=== PATIENT | female | born 1930 | race Caucasian/White ===

== ENCOUNTER 2018-09-14 12:34 | Emergency (ER) | payer MEDICARE, OTHER ==
[~2018-09-14] VITALS: Ht 165.1 cm; Wt 53.6 kg
[~2018-09-14 12:34] MED LIST: ATIVAN 0.50.5 MG/TAB PO; COUMADIN 2MG2 MG/TAB PO; EVISTA60 MG PO; LASIX 20MG TABL20 MG PO; LEXAPRO 10MG10 MG PO; LEXAPRO20 MG PO; LIPITOR20 MG PO; LOPRESSOR 225 MG/TAB PO; REMERON 15M15 MG/TA1 PO; SIMVASTATIN20 MG PO; TIAZAC180 MG PO; ULTRAM 50MG TAB50 MG PO; XYZAL5 MG PO
[2018-09-14 14:59] VITALS: BP 130/79; PULSE 90; TEMP 97.6
== END 2018-09-14 15:05 | disposition home or self-care (01) ==
LOC: COL.ER 12:34
DX: T18.120A Food in esophagus causing compression of trachea, initial encounter (principal); I10 Essential (primary) hypertension; E78.5 Hyperlipidemia, unspecified; F32.9 Major depressive disorder, single episode, unspecified; F41.9 Anxiety disorder, unspecified
CPT/HCPCS: C1726; J2060; J2405; J7030

== ENCOUNTER 2019-10-26 15:40 | Inpatient (IN) | payer MEDICARE, OTHER ==
[2019-10-26] VITALS (70 sets, daily range): BP systolic 80–135; BP diastolic 53–95; PULSE 101–120; O2SAT 82–100
[~2019-10-26] VITALS: Ht 157.5 cm; Wt 56.2 kg
[2019-10-26 16:53] LABS: HEMATOCRIT 45.8 % (37.0-47.0); MEAN CELL VOLUME 108 fl (80.0-100.0); MEAN CORPUSCULAR HEMOGLOBIN 33 pg (27.0-31.0); MEAN CORPUSCULAR HGB CONC 31 g/dl (33.0-37.0); MEAN PLATELET VOLUME 12.4 fl (7.4-10.4); PLATELET COUNT 199 K/mm3 (130-400); RED BLOOD COUNT 4.24 M/mm3 (4.10-5.30); REDCELL DISTRIBUTION WIDTH-CV 15.5 % (11.5-14.5)
[2019-10-26 16:54] LABS: ALBUMIN 4.4 gm/dL (3.5-5.0); BILIRUBIN,TOTAL 0.9 mg/dL (0.0-1.0); C-REACTIVE PROTEIN 8.2 mg/dL (0.0-0.9); CALCIUM 9.4 mg/dL (8.4-10.2); CREATININE, serum 2.35 (0.52-1.25); POTASSIUM 3.8 mmol/L (3.4-5.0); TOTAL PROTEIN 7.7 gm/dL (6.4-8.2)
[2019-10-26 17:06] LABS: TROPONIN-I 0.145 ng/mL (0.000-0.035)
[2019-10-26 17:47] LABS: COLLECTION METHOD CATHETER
[2019-10-26 17:50] LABS: ARTERIAL BLD GAS O2 SATURATION 95.7 % (92-100); ARTERIAL BLD GAS TCO2 CT 13.3; ARTERIAL BLOOD GAS BASE EXCESS -11.8 (-2-2); ARTERIAL BLOOD GAS HCO3 12.5 meq/L (22-26); ARTERIAL BLOOD GAS PCO2 24.8 mmHg (35-45); ARTERIAL BLOOD GAS PO2 78.1 mmHg (80-100); ARTERIAL BLOOD GAS pH 7.32 (7.35-7.45)
[2019-10-26 18:07] LABS: MUCOUS Present /lpf; PH 5 (5-8); SQUAMOUS EPITHELIAL 0-2 /hpf; URINE APPEARANCE Cloudy; URINE BACTERIA Rare /hpf; URINE BILIRUBIN Negative (NEGATIVE); URINE BLOOD 2+ (NEGATIVE); URINE COLOR Yellow; URINE GLUCOSE Negative (NEGATIVE); URINE KETONE Negative (NEGATIVE); URINE LEUKOCYTE ESTERASE 2+ (NEGATIVE); URINE NITRATE Negative (NEGATIVE); URINE PROTEIN(semi-quant) 1+ (NEGATIVE); URINE RBC 0-2 /hpf; URINE UROBILINOGEN Negative (NEGATIVE)
[2019-10-26] MEDS ORDERED: SYNTHROID0.05 MG/TA PO (18:14)
[2019-10-26] MEDS ORDERED: ALEVE 220MG220 MG PO (18:15)
[2019-10-26] MEDS ORDERED: PRILOSEC 20MG20 MG PO (18:15)
[2019-10-26 19:20] LABS: BAND 23 % (0-10); LYMPHOCYTE 15 % (20.0-51.0); METAMYELOCYTE 1 % (0-0); MYELOCYTE 1 % (0-0); NEUTROPHILS 59 % (42.0-75.2); PLATELET ESTIMATE NORMAL (NORMAL)
[2019-10-26 19:21] LABS: OVALOCYTES 1+
--- NOTE | 2019-10-26 20:50 | NUR ---
RECEIVE PT FROM OR. RECEIVE BEDSIDE REPORT FROM SANTO TORRES FROM OR. LEILANI CHING CRNA AT BEDSIDE TO PLACE ANOTHER CENTRAL LINE BECAUSE THE LEFT IJ IN WRONG POSITION. ART LINE PLACED BY LEILANI CHING CRNA TO RT RADIAL. PT VERY DROWSY AND UNRESPONSIVE AT THIS TIME. PLACED ON BEDSIDE CONTINUOUS MONITOR. CVP AND ART LINES PLACED. CVP NOTED TO BE 11. MIGUEL ÁNGEL KAT AT BEDSIDE DURING ADMIT PROCESS. NEW ORDERS, SEE MAR. SEE GTT TITRATIONS FLOWSHEET. WILL APPLY BSWR WHEN PT SHOWS S/S OF MORE ALERTNESS. FC PATENT AND DRIANING TO GRAVITY. 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 FINGERS AND TOES NORMAL COLOR BUT ARE VERY COOL TO TOUCH.
[2019-10-26 21:19] LABS: BASO % 0.1 % (0.0-2.0); EOS # 0.1 (0.0-0.7); EOS % 0.3 % (0-4.0); GRAN # 24.1 (1.4-6.5); GRAN % 86.1 % (42.2-75.2); LYMPH # 0.7 (1.2-3.4); LYMPH % 2.4 % (20.0-51.0); MEAN CELL VOLUME 108 fl (80.0-100.0); MEAN CORPUSCULAR HGB CONC 31 g/dl (33.0-37.0); MEAN PLATELET VOLUME 12.7 fl (7.4-10.4); MONO # 0.7 (0.1-0.6); MONO % 2.4 % (1.7-9.3); PLATELET COUNT 154 K/mm3 (130-400); REDCELL DISTRIBUTION WIDTH-CV 15.7 % (11.5-14.5)
--- NOTE | 2019-10-26 21:30 | NUR ---
DR MIMS AT BEDSIDE FOR ASSESSMENT, NEW ORDERS RECEIVED. DR SHAW AT BEDSIDE FOR ASSESSMENT. STATES TO CONTINUE TO MONITOR IF PT GOES BACK INTO AFIB. DR SHAW AWARE OF TROPONIN LEVELS AT THIS TIME.
[2019-10-26 21:35] LABS: HEMATOCRIT 36.7 % (37.0-47.0); HEMOGLOBIN 11.5 g/dl (12.5-16.0); MEAN CORPUSCULAR HEMOGLOBIN 34 pg (27.0-31.0)
[2019-10-26 21:37] LABS: INR 1.4 (0.8-3.0); PROTHROMBIN TIME 16.6 SECONDS (9.7-12.8)
[2019-10-26 21:39] LABS: BILIRUBIN,TOTAL 0.8 mg/dL (0.0-1.0); CALCIUM 7.4 mg/dL (8.4-10.2); MAGNESIUM 1.3 mg/dL (1.6-2.3); PHOSPHOROUS 2.9 mg/dL (2.5-4.5); POTASSIUM 3.3 mmol/L (3.4-5.0); TOTAL PROTEIN 5.7 gm/dL (6.4-8.2)
[2019-10-26 21:52] LABS: TROPONIN-I 3 HR POST INITIAL 0.1 ng/mL (0.000-0.034)
[2019-10-26 22:08] LABS: THYROID STIMULATING HORMONE 7.13 uIU/mL (0.465-4.680)
[2019-10-26 22:39] LABS: ARTERIAL BLD GAS O2 SATURATION 99.5 % (92-100); ARTERIAL BLD GAS TCO2 CT 13.1; ARTERIAL BLOOD GAS BASE EXCESS -9.3 (-2-2); ARTERIAL BLOOD GAS HCO3 12.5 meq/L (22-26); ARTERIAL BLOOD GAS pH 7.44 (7.35-7.45)
[2019-10-26 22:40] LABS: ARTERIAL BLOOD GAS PCO2 18.7 mmHg (35-45); ARTERIAL BLOOD GAS PO2 305.3 mmHg (80-100)
--- NOTE | 2019-10-26 22:40 | NUR ---
FIO2 DECREASED TO 50% BY RT BASED OFF NEW ABG RESULTS.
[2019-10-27] VITALS (787 sets, daily range): BP systolic 74–147; BP diastolic 50–91; PULSE 88–120; TEMP 97.8–99.9; O2SAT 80–100
--- NOTE | 2019-10-27 02:13 | NUR ---
DR LAST WITH ARE NOTIFIED OF INCREASED TROPONIN. REQUEST FOR EKG, RT NOTIFIED.
[2019-10-27 02:37] LABS: ARTERIAL BLD GAS TCO2 CT 12.1; ARTERIAL BLOOD GAS BASE EXCESS -9.7 (-2-2); ARTERIAL BLOOD GAS HCO3 11.6 meq/L (22-26); ARTERIAL BLOOD GAS pH 7.46 (7.35-7.45)
[2019-10-27 02:38] LABS: ARTERIAL BLOOD GAS PCO2 16.7 mmHg (35-45); ARTERIAL BLOOD GAS PO2 141.6 mmHg (80-100)
--- NOTE | 2019-10-27 02:40 | NUR ---
NOTIFIED DR LAST WITH [facility] OF ABG RESULTS, REQUESTS FOR MORNING CHEST XRAY TO BE OBTAINED NOW AND CALL WHEN COMPLETE. XRAY NOTIFIED, AWAITING FOR ARRIVAL.
--- NOTE | 2019-10-27 03:30 | NUR ---
MIGUEL ÁNGEL KAT AT BEDSIDE TO ATTEMPT OGT PLACEMENT, UNSUCCESSFUL. CXR OBTAINED PER [facility] REQUEST. MIGUEL ÁNGEL KAT DISCUSSES CASE WITH DR LAST WITH [facility]. NEW ORDERS RECEIVED.
--- NOTE | 2019-10-27 04:05 | NUR ---
MIGUEL ÁNGEL KAT AWARE OF LOW UO. CONTINUE TO MONITOR. PT RECEIVING IV FLUIDS, SEE MAR.
[2019-10-27 04:35] LABS: HEMATOCRIT 37.2 % (37.0-47.0); MEAN CELL VOLUME 104 fl (80.0-100.0); MEAN CORPUSCULAR HEMOGLOBIN 34 pg (27.0-31.0); MEAN CORPUSCULAR HGB CONC 32 g/dl (33.0-37.0); MEAN PLATELET VOLUME 12.9 fl (7.4-10.4); PLATELET COUNT 181 K/mm3 (130-400); RED BLOOD COUNT 3.57 M/mm3 (4.10-5.30); REDCELL DISTRIBUTION WIDTH-CV 15.9 % (11.5-14.5)
[2019-10-27 04:45] LABS: ALBUMIN 2.8 gm/dL (3.5-5.0); BILIRUBIN,TOTAL 0.9 mg/dL (0.0-1.0); CALCIUM 7.3 mg/dL (8.4-10.2); CREATININE, serum 1.68 (0.52-1.25); MAGNESIUM 3.2 mg/dL (1.6-2.3); PHOSPHOROUS 2.4 mg/dL (2.5-4.5); POTASSIUM 3.9 mmol/L (3.4-5.0); TOTAL PROTEIN 5.4 gm/dL (6.4-8.2)
[2019-10-27 04:56] LABS: INR 1.6 (0.8-3.0); PROTHROMBIN TIME 18.6 SECONDS (9.7-12.8)
[2019-10-27 04:57] LABS: TROPONIN-I 0.313 ng/mL (0.000-0.035)
--- NOTE | 2019-10-27 05:14 | NUR ---
THAIS, DR LAST, NOTIFIED OF INCREASED TROPONIN AND WBC THIS AM.
[2019-10-27 06:10] LABS: BAND 46 % (0-10); LYMPHOCYTE 4 % (20.0-51.0); METAMYELOCYTE 13 % (0-0); NEUTROPHILS 36 % (42.0-75.2); PLATELET ESTIMATE NORMAL (NORMAL)
[2019-10-27 06:16] LABS: ARTERIAL BLD GAS O2 SATURATION 98.5 % (92-100); ARTERIAL BLD GAS TCO2 CT 13.4; ARTERIAL BLOOD GAS BASE EXCESS -8.1 (-2-2); ARTERIAL BLOOD GAS HCO3 12.9 meq/L (22-26); ARTERIAL BLOOD GAS PO2 109.2 mmHg (80-100); ARTERIAL BLOOD GAS pH 7.48 (7.35-7.45)
[2019-10-27 06:19] LABS: ARTERIAL BLOOD GAS PCO2 17.6 mmHg (35-45)
[2019-10-27 08:20] LABS: PATHOLOGY DIFF REVIEW OK
--- NOTE | 2019-10-27 09:00 | NUR ---
0815: NOTIFIED ON FLOOR OF PT'S HR IN THE 140'S. EKG DONE. PT HR DOWN TO 120'S. 0900: PT BACK IN THE 140'S. DR MIMS MADE AWARE AND STATES HE SPOKE WITH REGARDING. I CALLED AND SPOKE WITH HIS NURSE AND SHE STATES WILL BE BY TO SEE PT.
--- NOTE | 2019-10-27 09:59 | NUR ---
0956: CALL PLACED TO RADIOLOGY REGARDING OG PLACEMENT. WAS TOLD TO CALL 1810 TO SPEAK WITH THE RADIOLOGIST. THERE WAS NO ANSWER AND UNABLE TO LEAVE A MESSAGE WITH RADIOLOGIST. WILL CALL AGAIN LATER.
--- NOTE | 2019-10-27 10:59 | NUR ---
1050:RADIOLOGIST PLACED NG/OG IN ROOM WITH FLOROSCOPY. 1100:SPOKE WITH REGARDING PT'S HR CONTINUING TO GO UP TO EHT 150'S APPEARING AFIB. WILL START AMIO GTT.
--- NOTE | 2019-10-27 13:02 | NUR ---
GEMMA JACKSON NOTIFIED OF [facility] RESULTS.
--- NOTE | 2019-10-27 13:56 | NUR ---
The patient is intubated and sedated. HOME THEATER INSTALLER student contacted the patient's /DPOA-HC Misael to complete initial assessment. The patient lives in [place] with Misael. The patient has a walker and receives assistance with showers from her daughter, Danette. Before this hospitalization the patient could dress herself. The patient's PCP is Dr. Campa and the patient receives medications from Viviana Pineda. The patient has advanced directives in the EMR. donor services coordinator will continue to follow to ensure a safe discharge.
[2019-10-27 14:04] LABS: ARTERIAL BLD GAS O2 SATURATION 98.4 % (92-100); ARTERIAL BLD GAS TCO2 CT 14.8; ARTERIAL BLOOD GAS BASE EXCESS -8.3 (-2-2); ARTERIAL BLOOD GAS HCO3 14.1 meq/L (22-26); ARTERIAL BLOOD GAS PCO2 22.2 mmHg (35-45); ARTERIAL BLOOD GAS PO2 124.5 mmHg (80-100); ARTERIAL BLOOD GAS pH 7.42 (7.35-7.45)
--- NOTE | 2019-10-27 16:24 | NUR ---
PT'S ARTLINE HAD BEEN LEAKING ALL DAY AND HAD BEEN GETTING RE-ENFORCED Q2HR. NOTED THAT DRAINAGE HAD INCREASED. TOOK DOWN DRESSING TO REPLACE AND NOTED A LARGE CLOT AND THAT THE ARTLINE WAS BARELY IN. ARTLINE DC'D. PRESSURE HELD AND PRESSURE DRESSING APPLIED. NOTIFIED. STATES NO NEED FOR NEW ARTLINE AT THIS TIME D/T PT'S BP IMPROVED AND WEANING DOWN ON LEVOPHED. IF CHANGES IN PRESSURE OR NEED FOR ADDITIONAL PRESSURE MAY NEED TO REPLACE.
--- NOTE | 2019-10-27 17:00 | NUR ---
PT RESPONDS TO PAIN. PT BITING ON ORAL SUCTION. PT MOVING EXTREMETIES. PT DOES NOT FOLLOW COMMANDS OR OPEN EYES TO VOICE. PT BEGAN BITING ET TUBE. PROPOFOL TURNED UP. WILL CONTINUE TO MONITOR.
--- NOTE | 2019-10-27 19:05 | NUR ---
RECEIVED REPORT FROM SANTO SALDANA. PT RESTING EASILY ON CURRENT VENT SETTINGS: AC, TV 420, PEEP 5, RATE 20, FIO2 40%. NGT IN PLACE TO LIS. FC PATENT AND DRAINING TO GRAVITY. SEE GTT TITRATIONS FLOWSHEET. VSS.
[2019-10-28] VITALS (701 sets, daily range): BP systolic 99–124; BP diastolic 67–87; PULSE 74–87; TEMP 97–98.8; O2SAT 79–100
--- NOTE | 2019-10-28 05:45 | NUR ---
WHEN PT AROUSED ON SEDATION VACATION, OPENED EYES TO VERBAL STIMULI. HOWEVER, PT WAS CONTINUOUSLY COUGHING AGAINST ETT AND SETTING OFF HIGH LIMIT ALARMS. PT NOT FOLLOWING SIMPLE INSTRUCTIONS. SEDATION ENDED, GTT RESTARTED PER PREVIOUS TITRATION.
[2019-10-28 06:25] LABS: ARTERIAL BLD GAS O2 SATURATION 98.5 % (92-100); ARTERIAL BLD GAS TCO2 CT 14.1; ARTERIAL BLOOD GAS BASE EXCESS -8.3 (-2-2); ARTERIAL BLOOD GAS HCO3 13.5 meq/L (22-26); ARTERIAL BLOOD GAS PO2 116.8 mmHg (80-100); ARTERIAL BLOOD GAS pH 7.46 (7.35-7.45)
[2019-10-28 06:33] LABS: ARTERIAL BLOOD GAS PCO2 19.5 mmHg (35-45)
[2019-10-28 07:21] LABS: HEMOGLOBIN 10.8 g/dl (12.5-16.0); MEAN CELL VOLUME 103 fl (80.0-100.0); MEAN CORPUSCULAR HEMOGLOBIN 34 pg (27.0-31.0); MEAN CORPUSCULAR HGB CONC 33 g/dl (33.0-37.0); MEAN PLATELET VOLUME 13.6 fl (7.4-10.4); PLATELET COUNT 102 K/mm3 (130-400); RED BLOOD COUNT 3.21 M/mm3 (4.10-5.30); REDCELL DISTRIBUTION WIDTH-CV 16.7 % (11.5-14.5)
[2019-10-28 07:23] LABS: ALBUMIN 2.5 gm/dL (3.5-5.0); BILIRUBIN,TOTAL 0.7 mg/dL (0.0-1.0); CALCIUM 7.3 mg/dL (8.4-10.2); CREATININE, serum 1.19 (0.52-1.25); INR 1.2 (0.8-3.0); MAGNESIUM 2.4 mg/dL (1.6-2.3); PHOSPHOROUS 3.7 mg/dL (2.5-4.5); POTASSIUM 3.3 mmol/L (3.4-5.0); PROTHROMBIN TIME 14.5 SECONDS (9.7-12.8); TOTAL PROTEIN 5.1 gm/dL (6.4-8.2)
[2019-10-28 07:46] LABS: HEMATOCRIT 33.2 % (37.0-47.0)
[2019-10-28 08:29] LABS: LYMPHOCYTE 2 % (20.0-51.0); MYELOCYTE 2 % (0-0); NEUTROPHILS 54 % (42.0-75.2); NUCLEATED RED BLOOD CELL 1 (0-6)
[2019-10-28 08:30] LABS: BURR CELLS 2+; OVALOCYTES 3+; PLATELET ESTIMATE DECREASED (NORMAL); SCHISTOCYTES 1+
--- NOTE | 2019-10-28 08:30 | NUR ---
PROPOFOL DECREASED PER DR.SINGH VARGAS.
[2019-10-28 08:31] LABS: BAND 41 % (0-10)
--- NOTE | 2019-10-28 10:37 | NUR ---
0800: Notified of drop in platelets and questioning SQ heparin. States ok with him but clarify with . 1035: Spoke with in rounds. Ok to continue SQ heparin at this time. Will follow labs in AM.
--- NOTE | 2019-10-28 10:40 | NUR ---
LEG ASSEMBLER student attended clinical rounds with the team. The patient remains intubated and sedated. financial services counselor will continue to follow.
--- NOTE | 2019-10-28 17:30 | NUR ---
PROPOFOL PLACED ON STAND BY. PT OPENING EYES TO VOICE AND SPONTANEOUSLY. PT NOT FOLLOWING COMMANDS. PT BITING ON ORAL SUCTION. PT CLOSING EYES WHILE TRYING TO ASSESS PUPILS. PT MOVING ALL EXTREMETIES. PT REMAINING CALM WHILE PROPOFOL ON STAND BY. WILL LEAVE ON STAND BY UNLESS PT BECOMES RESTLESS OR STARTS FIGHTING THE VENT. WILL CONTINUE TO MONITOR.
--- NOTE | 2019-10-28 18:12 | NUR ---
PT STARTING TO BITE ON ET TUBE. PT ALSO TACHYPNIC AND OVER BREATHING THE VENT. PROPOFOL RESTARTED. WILL CONTINUE TO MONITOR.
--- NOTE | 2019-10-28 19:15 | NUR ---
RECEIVED REPORT FROM SANTO SALDANA. PT RESTING EASILY ON CURRENT VENT SETTINGS: AC, TV 420, RATE 20, PEEP 5, FIO2 40%. FC PATENT AND DRAINING TO GRAVITY. NGT WITH TUBE FEED INFUSING AT 10ML/HR, APPEARS TO BE TOLERATING WELL. VSS. NO ACUTE S/S OF DISTRESS NOTED.
--- NOTE | 2019-10-28 20:55 | NUR ---
TF INCREASED TO 25ML/HR PER ORDERS, RESIDUAL 5. VSS.
[2019-10-29] VITALS (708 sets, daily range): BP systolic 91–128; BP diastolic 56–81; PULSE 72–80; TEMP 97.5–98.7; O2SAT 93–100
--- NOTE | 2019-10-29 05:25 | NUR ---
TF INCREASED TO 32ML/HR, GOAL. RESIDUAL 5ML.
[2019-10-29 05:55] LABS: ARTERIAL BLD GAS O2 SATURATION 98.7 % (92-100); ARTERIAL BLD GAS TCO2 CT 15.5; ARTERIAL BLOOD GAS BASE EXCESS -7.5 (-2-2); ARTERIAL BLOOD GAS HCO3 14.8 meq/L (22-26); ARTERIAL BLOOD GAS pH 7.45 (7.35-7.45)
[2019-10-29 05:56] LABS: ARTERIAL BLOOD GAS PO2 130.5 mmHg (80-100)
[2019-10-29 06:07] LABS: HEMOGLOBIN 10.9 g/dl (12.5-16.0); MEAN CELL VOLUME 104 fl (80.0-100.0); MEAN CORPUSCULAR HEMOGLOBIN 34 pg (27.0-31.0); MEAN CORPUSCULAR HGB CONC 32 g/dl (33.0-37.0); PLATELET COUNT 93 K/mm3 (130-400); RED BLOOD COUNT 3.25 M/mm3 (4.10-5.30); REDCELL DISTRIBUTION WIDTH-CV 16.8 % (11.5-14.5)
[2019-10-29 06:13] LABS: PROTHROMBIN TIME 12.2 SECONDS (9.7-12.8)
[2019-10-29 06:15] LABS: HEMATOCRIT 33.8 % (37.0-47.0)
[2019-10-29 06:18] LABS: ALBUMIN 2.4 gm/dL (3.5-5.0); BILIRUBIN,TOTAL 0.7 mg/dL (0.0-1.0); CALCIUM 7.5 mg/dL (8.4-10.2); CREATININE, serum 1.09 (0.52-1.25); MAGNESIUM 2.3 mg/dL (1.6-2.3); PHOSPHOROUS 2.8 mg/dL (2.5-4.5); POTASSIUM 4.2 mmol/L (3.4-5.0)
--- NOTE | 2019-10-29 06:30 | NUR ---
PT REMAINS CALM AFTER SEDATION VACATION STARTED. WEANING TRAIL STARTED AT THIS TIME BY RT. PT REMAINS CALM AND IS BREATHING WELL ON HER OWN AT THIS TIME. VSS. WILL CONTINUE TO MONITOR CLOSELY AND HELP KEEP PT CALM.
--- NOTE | 2019-10-29 07:04 | NUR ---
PT ON WEANING TRIAL MAYA WELL WITH NO DISTRESS NOTED ON 5 OVER 5.
--- NOTE | 2019-10-29 07:15 | NUR ---
BEDSIDE REPORT RECEIVED FROM SANTO ZAPATA PATIENT RESTING WHILE ON CPAP TRIAL. VS WNL. ALL LINES, TUBES, GTTS, AND VENT SETTINGS REVIEWED. CARE TAKEN OVER AT THIS TIME.
[2019-10-29 08:10] LABS: BAND 23 % (0-10); LYMPHOCYTE 2 % (20.0-51.0); NEUTROPHILS 72 % (42.0-75.2); NUCLEATED RED BLOOD CELL 2 (0-6)
[2019-10-29 08:11] LABS: OVALOCYTES 3+; PLATELET ESTIMATE DECREASED (NORMAL)
[2019-10-29 08:12] LABS: BURR CELLS 1+; SCHISTOCYTES 1+
--- NOTE | 2019-10-29 09:58 | NUR ---
Met with Misael and daughter along with pt in her room. She is undergoing a weaning trial this morning and doing well per Dr Morataya but cannot demonstrate enough muscle strength to raise her head or even squeeze a hand. Family did attemopt this with her and were unable to get any different response than physician. Recognizing that she has shown improvement, they are wanting to trial again tomorrow to see if she is ready for extubation. They do report wanting to support her in her recovery, recognizing that this will be a longer period and will require significant rehab. Pt has been at [facility] before, in , and reports that she liked it there. They did reach the decision to change code status to DNR/(DNI once extubation occurs). She is still remain on her current treatments and support and still hoping for a recovery.
--- NOTE | 2019-10-29 12:00 | NUR ---
PATIENT PLACED BACK IN ASSIST CONTROL ON VENT AT THIS TIME. PROPOFOL RESTARTED AT LOW DOSE.
--- NOTE | 2019-10-29 16:00 | NUR ---
PATIENT CONTINUES TO DO WELL ON VENT. SHE RESPONDS APPROPRIATELY NEUROLOGICALLY AND VS WNL. WILL CONTINUE TO MONITOR.
--- NOTE | 2019-10-29 19:00 | NUR ---
BEDSIDE REPORT GIVEN TO SANTO MONTANEZ. PATIENT TURNED DURING SHIFT REPORT. SKIN ASSESSED BY LISSETH. ALL VENT SETTINGS, LINES AND TUBES, GTTS REVIEWED. CARE TURNED OVER AT THIS TIME.
[2019-10-30] VITALS (801 sets, daily range): BP systolic 105–127; BP diastolic 61–87; PULSE 78–84; TEMP 97.5–98.8; O2SAT 88–100
[2019-10-30 05:15] LABS: ARTERIAL BLD GAS O2 SATURATION 98.3 % (92-100); ARTERIAL BLD GAS TCO2 CT 16.8; ARTERIAL BLOOD GAS BASE EXCESS -6.1 (-2-2); ARTERIAL BLOOD GAS HCO3 16.1 meq/L (22-26); ARTERIAL BLOOD GAS PCO2 23.1 mmHg (35-45); ARTERIAL BLOOD GAS PO2 110.7 mmHg (80-100); ARTERIAL BLOOD GAS pH 7.46 (7.35-7.45)
[2019-10-30 05:21] LABS: HEMOGLOBIN 10.3 g/dl (12.5-16.0); MEAN CELL VOLUME 104 fl (80.0-100.0); MEAN CORPUSCULAR HEMOGLOBIN 33 pg (27.0-31.0); MEAN CORPUSCULAR HGB CONC 32 g/dl (33.0-37.0); PLATELET COUNT 95 K/mm3 (130-400); REDCELL DISTRIBUTION WIDTH-CV 16.7 % (11.5-14.5)
[2019-10-30 05:22] LABS: HEMATOCRIT 32.3 % (37.0-47.0)
[2019-10-30 05:28] LABS: ALBUMIN 2.3 gm/dL (3.5-5.0); BILIRUBIN,TOTAL 0.6 mg/dL (0.0-1.0); CALCIUM 7.6 mg/dL (8.4-10.2); CREATININE, serum 1.08 (0.52-1.25); POTASSIUM 3.7 mmol/L (3.4-5.0); TOTAL PROTEIN 4.8 gm/dL (6.4-8.2)
[2019-10-30 06:15] LABS: ANISOCYTOSIS 1+; BAND 28 % (0-10); LYMPHOCYTE 7 % (20.0-51.0); METAMYELOCYTE 3 % (0-0); NEUTROPHILS 56 % (42.0-75.2); OVALOCYTES 1+; PLATELET ESTIMATE DECREASED (NORMAL)
[2019-10-30 06:17] LABS: DOHLE BODIES PRESENT
[2019-10-30 06:18] LABS: SCHISTOCYTES 1+
--- NOTE | 2019-10-30 12:00 | NUR ---
Tube Feeds paused, NG to LIS
--- NOTE | 2019-10-30 12:05 | NUR ---
MD Hood at bedside with family - plan is to extubate with no re-intubation and continue DNR/DNI
--- NOTE | 2019-10-30 12:20 | NUR ---
PT EXTUBATED PER DR. MIMS ORDER AND FAMILY REQUEST. PT PLACED ON 2L OXYMASK. PT RR IN MID 20'S BUT PT HAS BEEN IN MID 20'S ON VENT WELL. NO STRIDOR AUSCULTATED AND NO DISTRESS NOTED AT THIS TIME. ABG PENDING FOR THIS AFTERNOON.
--- NOTE | 2019-10-30 12:20 | NUR ---
Pt extuabted with Patience,RT at this time. Oxymask applied initially at 5L/min then titrated to 2L/min after 2min. Pt tolerated extubation well. 1230 family at bedside
[2019-10-30 16:47] LABS: ARTERIAL BLD GAS O2 SATURATION 95.5 % (92-100); ARTERIAL BLOOD GAS BASE EXCESS -6.3 (-2-2); ARTERIAL BLOOD GAS HCO3 16.2 meq/L (22-26); ARTERIAL BLOOD GAS PCO2 24.3 mmHg (35-45); ARTERIAL BLOOD GAS PO2 76.5 mmHg (80-100); ARTERIAL BLOOD GAS pH 7.44 (7.35-7.45)
--- NOTE | 2019-10-30 19:15 | NUR ---
Bedside report received from Tyler. NG tube placement confirmed together at 40cm. Gastric fluids are present in the LIS tubing. Transfer of care at this time.
--- NOTE | 2019-10-30 20:00 | NUR ---
Patient resting in bed. She is alert and oriented to self, but unclear if she is oriented in any other way; speech is incomprehensible. Assessment complete. HR and rhythm are regular with normal S1 and S2 heard. Lungs are clear in the upper lobes with diminished bases. Bowel sounds are active x4. Peripheral pulses are palpable in all extremities. Patient is edematous in the upper extremities, with hands being +3 pitting. Feet are also +3 pitting and legs being +1. Patient shakes her head no when asked if in pain and patient does not appear to be in any distress. vitals obtained and remain stable. Will continue to monitor. Call light within reach.
[2019-10-31] VITALS (436 sets, daily range): BP systolic 127–149; BP diastolic 66–94; PULSE 71–79; TEMP 97.5–98; O2SAT 82–100
--- NOTE | 2019-10-31 | NUR ---
Patient asleep at this time but awakens to name. No complaints of pain. Repositioned for comfort. Vitals obtained and remain stable. Assessment complete with no changes from previous exam. Patient does attempt to talk an answer questions, but no words can be distinguished in the sounds. Will continue to monitor. Call light within reach.
--- NOTE | 2019-10-31 04:00 | NUR ---
Patient was given a full bath and bed change. Vitals obtained and remain stable. Patient is articulating words better now and sometimes sentences can be made out. Assessment complete with no changes from previous exam. Patient denies any pain. Repositioned for comfort. Will continue to monitor. Call light within reach
[2019-10-31 05:26] LABS: MEAN CELL VOLUME 105 fl (80.0-100.0); MEAN CORPUSCULAR HGB CONC 31 g/dl (33.0-37.0); PLATELET COUNT 94 K/mm3 (130-400); RED BLOOD COUNT 2.96 M/mm3 (4.10-5.30); REDCELL DISTRIBUTION WIDTH-CV 16.9 % (11.5-14.5)
[2019-10-31 05:32] LABS: HEMATOCRIT 31.2 % (37.0-47.0); HEMOGLOBIN 9.8 g/dl (12.5-16.0); MEAN CORPUSCULAR HEMOGLOBIN 33 pg (27.0-31.0)
[2019-10-31 05:41] LABS: ALBUMIN 2.3 gm/dL (3.5-5.0); BILIRUBIN,TOTAL 0.7 mg/dL (0.0-1.0); CALCIUM 7.6 mg/dL (8.4-10.2); CREATININE, serum 1.04 (0.52-1.25); POTASSIUM 4.6 mmol/L (3.4-5.0); TOTAL PROTEIN 4.6 gm/dL (6.4-8.2)
[2019-10-31 06:16] LABS: ANISOCYTOSIS 2+; BAND 30 % (0-10); DOHLE BODIES PRESENT; EOSINOPHIL 2 % (0-4); LYMPHOCYTE 4 % (20.0-51.0); METAMYELOCYTE 2 % (0-0); NEUTROPHILS 61 % (42.0-75.2); OVALOCYTES 1+; PLATELET ESTIMATE DECREASED (NORMAL); SCHISTOCYTES 1+
--- NOTE | 2019-10-31 07:00 | NUR ---
Pt alert, oriented to self and family. Pt able to nod yes/no to questions but unable/unwilling to speak at this time. Arms and legs still weak and unable to lift/hold/squeeze with strength. Pt is able to nod "yes" that she knows she is in the hospital. No facial droop observed, WESLY. MD Smith notified of findings - plan to CT head tomorrow. Family at bedside and updated - no concerns at this time - family states "she is normally really weak and sometimes unable to move arms. She also sometimes becomes immobile due to her severe debilitating depression, and she has not been getting her depression meds since shes been in the hospital".
--- NOTE | 2019-10-31 07:10 | NUR ---
Bedside report given to SANTO Karimi
--- NOTE | 2019-10-31 08:00 | NUR ---
PT ALERT AND ORIENTED. PATIENT NODS/SHAKES HEAD APPROPRIATELY. PT NOTED TO HAVE RIGHT FACIAL DROOP AND DYSPHASIA. SPEECH IS GARBLED AND DIFFICULT TO UNDERSTAND. PT DOES HAVE THICK ROMANSH ACCENT. PT HAS WEAKNESS R>L NOTED. PT'S LUNGS NOTED TO HAVE RHONCHI THROUGHOUT. PT HAS MOIST COUGH BUT IS UNABLE TO EXPECTORATE.
--- NOTE | 2019-10-31 08:14 | NUR ---
PT NOTED TO HAVE RIGHT FACIAL DROOP, DYSPHASIA/DYSPHAGIA. PT ALSO NOTED TO HAVE INCREASED WEAKNESS TO RIGHT UPPER AND LOWER EXTREMITIES. DR CHAVEZ CALLED. PROVIDER STATES THAT SYMPTOMS WERE PRESENT YESTERDAY BUT PT WASN'T ABLE TO TOLERATE BEING LAID FLAT. PATIENT'S HOB AT THIS TIME AROUND 10 DEGREES. PT SHOULD BE ABLE TO LAY FLAT FOR CT HEAD.
--- NOTE | 2019-10-31 09:30 | NUR ---
PT WEANED TO ROOM AIR. PT O2 SAT 96%
--- NOTE | 2019-10-31 13:00 | NUR ---
PT TRANSFERRED TO MEDICAL FLOOR BED BY JUSTICE RN, MYSELF, AND FISHERIES MANAGEMENT BIOLOGIST. PT'S BELONGINGS TRANSFERRED WITH PT ALONG WITH TUBE FEED AND KANGAROO PUMP. PT'S BELONGINGS TRANSFERRED WITH PATIENT. FAMILY AWARE OF TRANSFER AND STATED THEY WILL MEET HER IN 311 AFTER THEY TAKE A SHORT BREAK. PT TRANSPORTED BY JUSTICE AND HIEU BY BED TO MEDICAL ROOM 311. CARE TRANSFERRED.
--- NOTE | 2019-10-31 13:06 | NUR ---
REPORT GIVEN TO JUSTICE BLANCHARD.
--- NOTE | 2019-10-31 13:41 | NUR ---
Pt brought up from ICU into room 312 at this time. Currently is Alert and oriented. Breathing is even and unlabored on RA. Pt having difficulty managaing secretions, suction at bedside. Coarse lung sounds to bases bilaterally. HR even and regular. Diffuse 2-3+ edema present. Pt able to follow commands, R side weaker than left. Pt not able to lift legs off of bed, and can lift arms off of the bed minimally. RIJ CDI, nothing currently infusing. NG tube at 40cm to L nare, tube feedings infusing at 15ml/hr. Levy DD, clear yellow urine. Fall precautions in place. No needs at this time. Call light within reach.
--- NOTE | 2019-10-31 16:57 | NUR ---
No residual from NG tube, feedings increased to 32ml/hr per order set. Oral cares provided. Attempted suctioning to patient for wet cough, phlegm in throat not much suctioned. Has no needs at this time. Call light within reach.
--- NOTE | 2019-10-31 18:57 | NUR ---
PRN suctioning performed, unable to suction much phlegm. POC discussed with family who is in agreeance. Tube feedings infusing without complications. Report given to SANTO Abel.
--- NOTE | 2019-10-31 20:00 | NUR ---
Dr. Rascon was in to see patient. Orders for the followin. MRI head with and without contrast tomorrow. 2. carotid ultrasoudn studies. Orders are already in for these tests.
--- NOTE | 2019-10-31 21:00 | NUR ---
Patient assessed at this time. Alert and oriented. Denies pain and discomfort. Triple lumen central line to right IJ. All flushed. Dressing to area is CDI. LS coarse crackles throughout. Denies SOB and dyspnea. Occasional moist cough. No sputum production. Respirations even and unlabored. HRR. Capillary refill less than 3 seconds. Non-tenting skin turgor. NG tube in place. 16 fr, at 40 cm thda. Jevity running per orders. BSAx4. Abdomen soft and non-tender. Indwelling tamayo catheter is patent, and draining clear yellow urine via dependent drainge. 3+ edema BLE. 2+ edema BUE. Patient refused nebulizer treatment from RT. Resting in bed with HOB elevated. Call light is within reach.
[2019-11-01] VITALS: BP 123/64; PULSE 79; TEMP 97.9
[2019-11-01 04:00] VITALS: BP 151/75; PULSE 83; TEMP 97.7
--- NOTE | 2019-11-01 04:00 | NUR ---
Staff have been assisting with repositioning in bed every two hours. Denies pain and discomfort. NG tube remains in place. Feeding put on hold at this time, as patient is scheduled for MRI today. Resting in bed wtih call light within reach.
[2019-11-01 06:00] LABS: BASO # 0.2 (0.0-0.2); BASO % 0.9 % (0.0-2.0); EOS # 0.4 (0.0-0.7); EOS % 1.8 % (0-4.0); GRAN # 17.7 (1.4-6.5); GRAN % 80.8 % (42.2-75.2); HEMOGLOBIN 10.5 g/dl (12.5-16.0); LYMPH # 0.8 (1.2-3.4); LYMPH % 3.8 % (20.0-51.0); MEAN CELL VOLUME 106 fl (80.0-100.0); MEAN CORPUSCULAR HEMOGLOBIN 33 pg (27.0-31.0); MEAN CORPUSCULAR HGB CONC 31 g/dl (33.0-37.0); MEAN PLATELET VOLUME 14.1 fl (7.4-10.4); MONO # 1.4 (0.1-0.6); MONO % 6.5 % (1.7-9.3); PLATELET COUNT 149 K/mm3 (130-400); RED BLOOD COUNT 3.17 M/mm3 (4.10-5.30); REDCELL DISTRIBUTION WIDTH-CV 16.8 % (11.5-14.5)
[2019-11-01 06:10] LABS: HEMATOCRIT 33.5 % (37.0-47.0)
[2019-11-01 06:15] LABS: ALBUMIN 2.7 gm/dL (3.5-5.0); BILIRUBIN,TOTAL 0.9 mg/dL (0.0-1.0); CALCIUM 8.2 mg/dL (8.4-10.2); CREATININE, serum 0.98 (0.52-1.25); MAGNESIUM 1.9 mg/dL (1.6-2.3); PHOSPHOROUS 2.5 mg/dL (2.5-4.5); POTASSIUM 4.1 mmol/L (3.4-5.0); TOTAL PROTEIN 5.2 gm/dL (6.4-8.2)
[2019-11-01 06:23] LABS: PRE ALBUMIN 12.8 mg/dL (17.6-36.0)
[2019-11-01 08:10] VITALS: BP 142/66; PULSE 80; TEMP 97.8
--- NOTE | 2019-11-01 08:30 | NUR ---
Pt left for MRI at this time.
--- NOTE | 2019-11-01 10:26 | NUR ---
HALINA met with the patient to review discharge plan. The patient was quiet and had a difficult time answering SW questions. The patient requested that SW contact her . HALINA then contacted the patient's , Misael, to review discharge plan. Misael is interested in SNF for the patient. HALINA explained the Patient Choice Form to Misael and reviewed Medicare.[employer]'s list of SNF's in the [facility]. The patient's chose 1) [facility] 2) [facility]. The patient's gave HALINA his verbal consent. HALINA contacted and faxed a referral to both facilities. SW awaiting their screens.
[2019-11-01 12:16] VITALS: BP 140/66; PULSE 77; TEMP 98
--- NOTE | 2019-11-01 14:27 | NUR ---
Celeste, at [facility], reports that they are good to follow care at this time. Manny, at [facility], reports that they are able to accept the patient. SW to inform the patient and her and will continue to follow.
[2019-11-01 16:17] VITALS: BP 105/57; PULSE 82; TEMP 98.5
--- NOTE | 2019-11-01 18:21 | NUR ---
Pt had uneventful day. Asked to drink water on several occasions, discussed with patient again that she is NPO. She has no pain. Good UOP, very edematous. Tube feedings infusing at 40ml/hr. Repositioning offered. No needs at this time.
--- NOTE | 2019-11-01 19:45 | NUR ---
Patient assessed at this time. Alert and oriented. Denies having pain and discomfort. Triple lumen right IJ. Flushed each lumen. 16fr salem sump NG tube. Feeding per orders. At 40 cm thad. LS CTA in upper lobes, diminished in lower. Denies SOB and dyspnea. Respirations even and unlabored. HRR. Capillary refill less than 3 seconds. Non-tenting skin turgor. BSAx4. Abdomen soft and non-tender. Indwelling tamayo catheter draining clear yellow urine via dependent drainage. 2+ edema bilateral hands. 3+ BLE. Voices no questions, needs, or concerns at this time. Resting in bed watching TV. Call light is within reach.
[2019-11-01 21:18] VITALS: BP 135/54; PULSE 85; TEMP 97.5
[2019-11-02 00:16] VITALS: BP 125/59; PULSE 82; TEMP 97.8
[2019-11-02 04:03] VITALS: BP 148/67; PULSE 81; TEMP 96.6
[2019-11-02 05:59] LABS: HEMOGLOBIN 10.7 g/dl (12.5-16.0); MEAN CELL VOLUME 104 fl (80.0-100.0); MEAN CORPUSCULAR HEMOGLOBIN 33 pg (27.0-31.0); MEAN CORPUSCULAR HGB CONC 32 g/dl (33.0-37.0); MEAN PLATELET VOLUME 13.8 fl (7.4-10.4); PLATELET COUNT 177 K/mm3 (130-400); RED BLOOD COUNT 3.25 M/mm3 (4.10-5.30); REDCELL DISTRIBUTION WIDTH-CV 16.7 % (11.5-14.5)
--- NOTE | 2019-11-02 06:07 | NUR ---
Patient denies pain and discomfort. Staff continues to reposition in bed. Indwelling tamayo catheter continues to drain clear yellow urine. NG feeding continues with flushes per orders. Resting in bed with call light within reach.
[2019-11-02 06:09] LABS: HEMATOCRIT 33.7 % (37.0-47.0)
[2019-11-02 06:11] LABS: CALCIUM 8.1 mg/dL (8.4-10.2); CREATININE, serum 0.94 (0.52-1.25); MAGNESIUM 1.7 mg/dL (1.6-2.3); POTASSIUM 3.4 mmol/L (3.4-5.0)
[2019-11-02 07:39] LABS: BAND 16 % (0-10); EOSINOPHIL 4 % (0-4); LYMPHOCYTE 5 % (20.0-51.0); METAMYELOCYTE 1 % (0-0); NEUTROPHILS 68 % (42.0-75.2); NUCLEATED RED BLOOD CELL 2 (0-6); OVALOCYTES 2+; SCHISTOCYTES 1+
[2019-11-02 07:40] LABS: PLATELET ESTIMATE NORMAL (NORMAL)
--- NOTE | 2019-11-02 08:00 | NUR ---
Patient is resting in bed on right side. Offered to reposition and patient did state, "I'm ok." Oral care provided as mouth appeared dry. Assessment complete. Respirations are even and nonlabored. Patient verbalized no when asked if she was in pain. Opens eyes briefly during conversation and then closes as if she is resting. Facial expression is relaxed. Did elevate left arm on pillow. Call light is within reach, TV is on.
[2019-11-02 08:18] VITALS: BP 129/56; PULSE 87; TEMP 98.9
[2019-11-02 13:00] VITALS: BP 128/60; PULSE 86; TEMP 97.9
--- NOTE | 2019-11-02 14:51 | NUR ---
The hospitalist would like to have a family meeting with the patient's . SW attempted to contact the patient's , Misael, to set up meeting. HALINA left him a voicemail. HALINA also faxed updates to Alesia Crook and Deepti. SW to continue to follow.
--- NOTE | 2019-11-02 15:35 | NUR ---
The patient's , Misael, returned HALINA's phone call. Misael states that he can be up at the hospital tomorrow morning, 11/03, at 0930. HALINA informed the patient's Farzana CESPEDES. HALINA to continue to follow.
[2019-11-02 18:03] VITALS: BP 132/72; PULSE 82; TEMP 98.5
--- NOTE | 2019-11-02 18:59 | NUR ---
RIGHT IJ DISCONTINUED PER PROVIDER'S ORDERS PER PROTOCOL. INT STARTED TO LEFT HAND. DELATORRE CATHETER ALSO CHANGED PER PROVIDERS ORDER.
--- NOTE | 2019-11-02 23:07 | NUR ---
PT report received from dayshift nurse and meet and greet performed. PT resting in bed peacefully with NG tube in left nare and feeding running at 40ml/hr. Oral care performed amd PT repositioned to left side. PT noted to have liquid brown BM, brief changed and olvin-care provided. PT answers "something to drink" when asked if PT needs anything prior to this global technical writer leaving room. Education provided on NPO order and risk of aspiration with oral fluids. PT states understanding. Call light within reach, Bilat hands elevated on pillow to help reduce edema. No s/s of distress noted. Will continue to monitor.
[2019-11-03 01:50] VITALS: BP 128/55; PULSE 78; TEMP 96.6
--- NOTE | 2019-11-03 04:02 | NUR ---
PT resting in bed with eyes closed with no s/s of distress noted. PT opens eyes when spoken to, Call light within reach and will continue to monitor.
[2019-11-03 06:16] LABS: HEMOGLOBIN 10.7 g/dl (12.5-16.0); MEAN CELL VOLUME 104 fl (80.0-100.0); MEAN CORPUSCULAR HEMOGLOBIN 33 pg (27.0-31.0); MEAN CORPUSCULAR HGB CONC 32 g/dl (33.0-37.0); MEAN PLATELET VOLUME 13.5 fl (7.4-10.4); PLATELET COUNT 181 K/mm3 (130-400); RED BLOOD COUNT 3.24 M/mm3 (4.10-5.30); REDCELL DISTRIBUTION WIDTH-CV 17.2 % (11.5-14.5)
[2019-11-03 06:19] LABS: HEMATOCRIT 33.6 % (37.0-47.0)
[2019-11-03 06:28] LABS: ALBUMIN 2.7 gm/dL (3.5-5.0); BILIRUBIN,TOTAL 0.6 mg/dL (0.0-1.0); CALCIUM 8.1 mg/dL (8.4-10.2); CREATININE, serum 0.79 (0.52-1.25); POTASSIUM 4.1 mmol/L (3.4-5.0); TOTAL PROTEIN 5.2 gm/dL (6.4-8.2)
--- NOTE | 2019-11-03 06:30 | NUR ---
PT resting in bed with eyes closed and no s/s of distress noted. AM meds given per MAR via NG tube with 60ml of water and 60ml flush. Will continue to monitor.
[2019-11-03 07:21] LABS: BAND 12 % (0-10); EOSINOPHIL 2 % (0-4); LYMPHOCYTE 6 % (20.0-51.0); NEUTROPHILS 75 % (42.0-75.2); NUCLEATED RED BLOOD CELL 1 (0-6); OVALOCYTES 3+; SCHISTOCYTES 1+
[2019-11-03 07:22] LABS: PLATELET ESTIMATE NORMAL (NORMAL)
--- NOTE | 2019-11-03 09:00 | NUR ---
THIS NURSE AND CIRCUIT TESTER IN ROOM TO ASSIST PT ON GETTING CHANGED. THIS NURSE NOTED NG TUBE NASEL ASSESIVE STICKER WAS COMING OFF NOSE, CHANGED OUT STICKER FOR A NEW ONE. THIS NURSE CHECKED THE PRIOR CHARTED CM OF NG TUBE, WAS AT 40CM, TUBE REMAINS AT 40CM, ASSIPRATED NG, 5CC OF RESIDULE NOTED. 40MLS/HR INFUSING VIA KANGAROO PUMP. DELATORRE HAS NOTED URINE RETURN, CHANGED STAT LOCK DUE TO BEING SOILD.
--- NOTE | 2019-11-03 09:00 | NUR ---
VARIFIED WITH PHARMACY MEDS AND IF IT WAS OKAY TO CRUSH MEDS FOR NG TUBE. PHARMACIST WAS GOING TO CHECK WITH DOC ABOUT CHAI STANLEY
[2019-11-03 11:30] VITALS: BP 106/54; PULSE 83; TEMP 97.6
--- NOTE | 2019-11-03 11:32 | NUR ---
PT had liquid stool BM. Eugenia care was provided, sheets were changed. She requested a drink but we used mouth swabs due to NPO status. Speech therapy was in to assess oral status and pt continued to cough so NPO status remains. Pt meds were provided. A warm blanket was provided as well. Pt was alert and oriented and responding to questions and following our actions. Pt denied any other needs at this time.
--- NOTE | 2019-11-03 12:59 | NUR ---
Met with patient and her both before and after team rounding today. Pt remains very weak. She is asking for a drink of water from everyone who comes into her room but seems accepting that she cannot have a drink but moist swabs were offered but declined. Pt remains NPO and will wait for sppech evaluation of her swallowing again today. Discussion of feeding tube placement occured although , Misael, replies that it is not something that he or his would want but may be their only choice in trying to get stronger. He is aware that treatment team will be wanting a decision from them by tomorrow. His stated perception is that she is doing pretty well--just needs to get stronger.
[2019-11-03 15:00] VITALS: BP 114/60; PULSE 79; TEMP 97.2
--- NOTE | 2019-11-03 15:51 | NUR ---
HALINA attended a family meeting with the patient and her , Misael. Also present was the hospitalist, RUBINA, and palliative care nurse (Marah). The patient remains NPO with an NG tube for feeds. The hospitalist discussed how the patient's swallowing function is not improving and how the next steps would be placing a peg tube vs palliative care. The patient's reports that him and the patient would not want a peg tube placed, but would like to wait and see how the patient does. He would like to speak to family and make a decision tomorrow. He states that the patient just needs to get stronger. HALINA contacted and faxed updates to Alesia Crook and Deepti. HALINA to continue to follow.
--- NOTE | 2019-11-03 15:54 | NUR ---
Corazon informed me that the pt's R lip was drooping a little when she was talking. We turned the pt to her right side per protocol. She is aware of the season and where she is but not of the year or current president. Previously in the shift her left arm was edemetous but now that swelling has decreased. Now her right arm is edemetous and currently propped up on a pillow. Her legs bilat. are still edemetous and propped up on pillows. Her urine output is clear yellow. She has been changed to Jevity feedings to help dec. her incontinent stools.
--- NOTE | 2019-11-03 19:15 | NUR ---
PT report received from blanche perez with meet and greet performed. PT is resting in bed with family present and tv on. PT denies needs/wants at this time. Call light within reach. NG tube secured to left nares with jevity running at 40ml / hr and irrigation/fluids at 150ml/hr. No s/s of distress noted. Will continue to monitor.
[2019-11-03 19:42] VITALS: BP 117/56; PULSE 76; TEMP 97.6
[2019-11-04 00:21] VITALS: BP 128/54; PULSE 81; TEMP 97.3
--- NOTE | 2019-11-04 00:22 | NUR ---
PT has been resting peacefully in bed with no s/s of distress noted. PT has a large liquid BM during shift with olvin-care and catheter care performed. PT is noted to have excoriation of her medial thighs/olvin-area and some redness under her abdominal folds and under her left breast. PT c/o pain/discomfort with turning. PT remains NPO with NG tube providing nutrition and fluids. Will continue to monitor.
[2019-11-04 04:13] VITALS: BP 119/53; PULSE 77; TEMP 97.4
--- NOTE | 2019-11-04 04:36 | NUR ---
PT resting in bed with eyes closed and tv on with NG tube running at 40ml/hr and free water/irrigation running at 150ml/hr. PT presents with no s/s of distress. Call light within reach. Will continue to monitor.
[2019-11-04 06:10] LABS: MEAN CELL VOLUME 105 fl (80.0-100.0); MEAN CORPUSCULAR HGB CONC 32 g/dl (33.0-37.0); PLATELET COUNT 191 K/mm3 (130-400); RED BLOOD COUNT 2.99 M/mm3 (4.10-5.30); REDCELL DISTRIBUTION WIDTH-CV 16.9 % (11.5-14.5)
[2019-11-04 06:18] LABS: CALCIUM 8.2 mg/dL (8.4-10.2); CREATININE, serum 0.86 (0.52-1.25); POTASSIUM 3.6 mmol/L (3.4-5.0)
[2019-11-04 06:20] LABS: HEMATOCRIT 31.4 % (37.0-47.0); HEMOGLOBIN 9.9 g/dl (12.5-16.0); MEAN CORPUSCULAR HEMOGLOBIN 33 pg (27.0-31.0)
[2019-11-04 07:50] LABS: BAND 10 % (0-10); EOSINOPHIL 2 % (0-4); LYMPHOCYTE 10 % (20.0-51.0); METAMYELOCYTE 1 % (0-0); MYELOCYTE 1 % (0-0); NEUTROPHILS 67 % (42.0-75.2)
[2019-11-04 07:54] LABS: OVALOCYTES 2+
[2019-11-04 07:55] VITALS: BP 123/59; PULSE 77; TEMP 98
[2019-11-04 09:56] LABS: PLATELET ESTIMATE NORMAL (NORMAL)
[2019-11-04 12:16] VITALS: BP 112/50; PULSE 79; TEMP 97.2
--- NOTE | 2019-11-04 13:09 | NUR ---
The patient's , Misael, arrived at the hospital and informed Palliative Care Nurse, Marah, that he has decided to pursue with the peg tube and would now prefer [facility] for SNF. SW met with the patient and her and confirmed preference. The patient's states that he toured [facility] and now prefers them first and [facility] as second. SW notified Celeste at [facility]. HALINA contacted and faxed a referral to Julito at [facility]. HALINA attempted to contact Manny at [facility] to update. SW left her a voicemail. SW awaiting [facility]'s screen and will continue to follow.
[2019-11-04 16:15] VITALS: BP 125/59; PULSE 84; TEMP 98.7
--- NOTE | 2019-11-04 18:06 | NUR ---
PT HAS BEEN VERY MOIST IN THE BACK OF THROAT, RT HAS BEEN UP TO SUCTION PERIDICALLY THROUGHOUT DAY AND HAS BEEN ABLE TO GET SOME MUCUS UP, PT WILL BE OKAY BRIEFLY AFTER SUCTION THEN WILL GET A BUILD UP OF MUCUS SHORTLY AFTER.
[2019-11-04 19:16] VITALS: BP 129/53; PULSE 84; TEMP 97.9
--- NOTE | 2019-11-04 20:30 | NUR ---
Patient assessed at this time. Alert and oriented. Needs anticipated by staff. IV site to left hand flushed. Site is without redness, warmth, swelling, and pain. 16F NG tube to left nare, at 40 cm thad. Continuous feeding per orders: Jevity at 40 ml/hr, with 150 ml water flush every 4 hours. Will put feeding on hold at midnight for PEG tube placement scheduled for tomorrow. Denies having pain and discomfort. Denies having SOB and dyspnea. LS fine crackles. Moist cough. Oral suction PRN. Denies chest pain and discomfort. HRR. Telemetry in place: sinus. Capillary refill less than 3 seconds. Non-tenting skin turgor. BSAx4. Abdomen soft and non-tender. Has had two episodes of loose stool so far this shift. Perineal hygiene care provided. Indwelling tamayo catheter patenet, and draining clear yellow urine via dependent drainage. Catheter care provided. Redness under breasts and in groing folds. Desenex powder applied. HOB elevated. Staff continues to reposition every two hours. Oral care provided. Resting in bed with call light within reach. High fall risk precautions in place.
--- NOTE | 2019-11-05 | NUR ---
Patients NG feeding stopped at this time per orders for PEG tube placement today.
[2019-11-05 00:31] VITALS: BP 138/58; PULSE 86; TEMP 97.3
[2019-11-05 04:09] VITALS: BP 153/63; PULSE 82; TEMP 97.8
--- NOTE | 2019-11-05 06:33 | NUR ---
Patient has denied having pain and discomfort this shift. Did need oral suctioning a few times. Continues to have gugline. HOB elevated. Staff provided repositioning every two hours throughout the night. No further loose stools. Voices no questions, needs, or concerns. Resting in bed with call light within reach.
[2019-11-05 07:40] VITALS: BP 136/59; PULSE 85; TEMP 98.2
[2019-11-05 07:55] LABS: CALCIUM 8.7 mg/dL (8.4-10.2); CREATININE, serum 0.83 (0.52-1.25); POTASSIUM 4.1 mmol/L (3.4-5.0)
[2019-11-05 08:13] LABS: PATHOLOGY DIFF REVIEW OK
[2019-11-05 11:17] LABS: BASO # 0.1 (0.0-0.2); BASO % 0.5 % (0.0-2.0); EOS # 0.2 (0.0-0.7); EOS % 1.5 % (0-4.0); GRAN # 9.2 (1.4-6.5); GRAN % 81.3 % (42.2-75.2); LYMPH # 0.7 (1.2-3.4); LYMPH % 6.5 % (20.0-51.0); MEAN CELL VOLUME 106 fl (80.0-100.0); MEAN CORPUSCULAR HGB CONC 31 g/dl (33.0-37.0); MEAN PLATELET VOLUME 12.7 fl (7.4-10.4); MONO % 8.8 % (1.7-9.3); PLATELET COUNT 213 K/mm3 (130-400); REDCELL DISTRIBUTION WIDTH-CV 16.1 % (11.5-14.5)
[2019-11-05 11:21] LABS: HEMATOCRIT 30.7 % (37.0-47.0); HEMOGLOBIN 9.6 g/dl (12.5-16.0); MEAN CORPUSCULAR HEMOGLOBIN 33 pg (27.0-31.0)
[2019-11-05 11:58] LABS: ALBUMIN 2.8 gm/dL (3.5-5.0); BILIRUBIN,TOTAL 0.6 mg/dL (0.0-1.0); CALCIUM 8.1 mg/dL (8.4-10.2); CREATININE, serum 0.83 (0.52-1.25); MAGNESIUM 1.8 mg/dL (1.6-2.3); PHOSPHOROUS 4.3 mg/dL (2.5-4.5); POTASSIUM 4.4 mmol/L (3.4-5.0); TOTAL PROTEIN 5.5 gm/dL (6.4-8.2)
[2019-11-05 12:05] LABS: PRE ALBUMIN 13.4 mg/dL (17.6-36.0)
[2019-11-05 12:32] VITALS: BP 122/52; PULSE 77
[2019-11-05 15:09] VITALS: BP 123/60; PULSE 81; TEMP 97.4
--- NOTE | 2019-11-05 16:27 | NUR ---
Julito from [facility] reports they can accept the patient for a senior living stay. HALINA informed Celeste at [facility] and thanked her for considering the referral. HALINA informedMisael the patient's . senior director creative services will continue to follow.
--- NOTE | 2019-11-05 18:00 | NUR ---
PT HAD NG TUBE REMOVED TODAY IN OR. PT HAD A MUCH BETTER DAY. NO SUCTIONING NEEDED, COUGHING UP MUCUS HAS CLEARED. VITALS WHERE STABLE AFTER RETURNING FROM OR. ESCORIATION UNDER LEFT BREAST CLEARED UP BUT STILL APPLIED SOME POWDER. CONTINUES TO HAVE LOOSE STOOL BUT NOT MANY PRIOR DAY. PICC LINE STARTED TO RT UPPER ARM. TPN INITIATED THIS SHIFT AT APPROX. 1600.
--- NOTE | 2019-11-05 19:00 | NUR ---
Bedside report received from Mandie RN and PT is noted to be resting peacefully in bed with spouse present. PT denies pain or wants/needs at this time. Will continue to monitor
[2019-11-05 21:40] VITALS: BP 128/51; PULSE 75; TEMP 96.7
[2019-11-06] VITALS (7 sets, daily range): BP systolic 111–135; BP diastolic 52–87; PULSE 69–73; TEMP 96.1–98.3
--- NOTE | 2019-11-06 00:24 | NUR ---
PT resting in bed peacefully with eyes closed and no s/s of distress noted. PT continues to have excoriation to olvin-area secondary to loose watery stools and pain with olvin-care. TPN continues to run via PICC with no complications noted. Will continue to monitor.
[2019-11-06 06:39] LABS: CALCIUM 8.4 mg/dL (8.4-10.2); CREATININE, serum 0.86 (0.52-1.25); POTASSIUM 3.8 mmol/L (3.4-5.0)
--- NOTE | 2019-11-06 11:18 | NUR ---
Pt assessment completed and charted. Pt alert, partially oriented, responsive. Pt is on room air, breathing is even and unlabored. pt on tele. KARINA PICC w/ TPN running to red port w/o complications. Potassium replaced per protocol this AM. No edema noted, much improved over last few days. Levy catheter in place draining clear yellow urine. Eugenia, incontinent, oral, and cath care provided. Pt repositioned and changed. Dressing to right neck from RIJ removal on Friday removed, CDI, no issues. No other concerns expressed at this time. HOB elevated at 40 degrees.
--- NOTE | 2019-11-06 17:47 | NUR ---
Pt caps changed to KARINA PICC. Both ports flush w/o complications and good blood return. New TPN bag hung, running at 74 ml/hr to red port. Pt denies pain, doesn't appear to be in distress. Cath care provided. Oral care provided. No concerns expressed at this time.
--- NOTE | 2019-11-06 20:30 | NUR ---
Initial shift assessment done- denies pain- states does not need pain meds at this time, Incontinent of liquid brown stool- cleaned up, repositioned, Levy to DD with clear yellow urine, TPN at 74cc/hr to KARINA PICC.
[2019-11-07 04:03] VITALS: BP 139/67; PULSE 73; TEMP 97.8
--- NOTE | 2019-11-07 04:55 | NUR ---
Has been sleeping well tonight- awake now, states having pain to hands/arms, does not have orders for pain meds- Clare MCKAY called and order obtained for Morphine IV {pt is NPO} Morphine 2mg IV given at this time. Repositioned-no other requests at this time. TPN continues at 74cc/hr
[2019-11-07 06:32] LABS: BASO # 0.1 (0.0-0.2); BASO % 0.8 % (0.0-2.0); EOS # 0.3 (0.0-0.7); GRAN # 6.5 (1.4-6.5); GRAN % 75.4 % (42.2-75.2); LYMPH # 0.7 (1.2-3.4); LYMPH % 8.6 % (20.0-51.0); MEAN CELL VOLUME 106 fl (80.0-100.0); MEAN CORPUSCULAR HGB CONC 31 g/dl (33.0-37.0); MEAN PLATELET VOLUME 12.9 fl (7.4-10.4); MONO % 11.2 % (1.7-9.3); PLATELET COUNT 247 K/mm3 (130-400); RED BLOOD COUNT 2.93 M/mm3 (4.10-5.30); REDCELL DISTRIBUTION WIDTH-CV 15.7 % (11.5-14.5)
[2019-11-07 06:45] LABS: HEMATOCRIT 31.1 % (37.0-47.0); HEMOGLOBIN 9.6 g/dl (12.5-16.0); MEAN CORPUSCULAR HEMOGLOBIN 33 pg (27.0-31.0)
[2019-11-07 06:49] LABS: CALCIUM 8.3 mg/dL (8.4-10.2); CREATININE, serum 0.68 (0.52-1.25); POTASSIUM 3.8 mmol/L (3.4-5.0)
[2019-11-07 08:00] VITALS: BP 129/55; PULSE 74; TEMP 97.1
[2019-11-07 09:04] LABS: MAGNESIUM 2.4 mg/dL (1.6-2.3); PHOSPHOROUS 3.1 mg/dL (2.5-4.5)
--- NOTE | 2019-11-07 11:54 | NUR ---
Pt assessment completed and charted, morning medications administered per DEC. Pt sleeping in bed, received morphine per hourly shift manager. Pt arousable to voice and touch, but drowsy. pt cooperative w/ cares. Denies pain at this time. KARINA PICC w/ TPN running at 74ml/hr. Ports flush w/o complications, good blood return. pt on room air, breathing is even and unlabored. olvin care area excoriated, desenex powder applied. Levy draining yellow urine w/o complications. Legs elevated w/ pillows. Pt then assisted to recliner by therapy. Sleeping w/ at bedside.
[2019-11-07 12:00] VITALS: BP 143/56; PULSE 75; TEMP 97.9
--- NOTE | 2019-11-07 14:16 | NUR ---
HALINA faxed updates to [facility], and contacted Julito to inform him that updates had been sent.
--- NOTE | 2019-11-07 15:45 | NUR ---
Oral care provided to pt. Pt has been sleeping in recliner. TPN running to [facility] w/o complications.
[2019-11-07 16:26] VITALS: BP 146/63; PULSE 69; TEMP 97.4
--- NOTE | 2019-11-07 16:53 | NUR ---
Pt assisted back to bed, 3 assist. Pt alert, minimal help from pt. Once in bed, pt able to move legs on bed on her own more than yesterday. Pt had epsiode of incontinence, BM. New brief. olvin/cath care provided.
[2019-11-07 23:54] VITALS: BP 134/52; PULSE 70; TEMP 97.6
[2019-11-08 04:11] VITALS: BP 129/55; PULSE 76; TEMP 97.4
[2019-11-08 07:01] LABS: ALBUMIN 2.7 gm/dL (3.5-5.0); BILIRUBIN,TOTAL 0.3 mg/dL (0.0-1.0); CALCIUM 8.2 mg/dL (8.4-10.2); CREATININE, serum 0.65 (0.52-1.25); MAGNESIUM 2.2 mg/dL (1.6-2.3); PHOSPHOROUS 3.1 mg/dL (2.5-4.5); POTASSIUM 3.9 mmol/L (3.4-5.0); TOTAL PROTEIN 5.6 gm/dL (6.4-8.2)
[2019-11-08 07:10] LABS: PRE ALBUMIN 11.8 mg/dL (17.6-36.0)
--- NOTE | 2019-11-08 07:45 | NUR ---
Patient in bed resting. Alert and partially oriented, is able to state what day it is and where she is, however is unable to state . Repositioned paitient at this time. BLE elevated on pillows. PICC line to KARINA without complications. Offered mouth swabs to patient, oral care provided. Lips dry, applied chapstick. Levy to dependent drainage with clear yellow urine present. Denies pain or further needs at this time.
[2019-11-08 08:05] VITALS: BP 127/52; PULSE 70; TEMP 97.7
[2019-11-08 11:37] VITALS: BP 136/52; PULSE 75; TEMP 97.5
--- NOTE | 2019-11-08 13:58 | NUR ---
Dr Gao met with pt and her at bedside to talk about options and concerns regarding PEG tube placement. Dr Gao reviewed the most recent findings with hortensia perez including the large hiatal hernia that was discovered which appears to be a relatively new finding. Dr Gaoreviewed that the surgery to place this feeding tube will be much more difficult and with more risks. still feels that it is the only choice for her. He cannot accept letting her try to eat, knowing that it will most likely lead to aspiration. She will have a MBS today in radiology, Dr Bailon will review and then probably scope her esophagus/stomach tomorrow, followed by discussion with Dr Herr and Dr Gao to determine plan. understands but is frustrated that this is taking so long to get done.Speech therapy also spoke with about plan and will talk with tomorrow again when he is here. does not waiver from wanting feeding tube placed--"It is the only acceptable option".
--- NOTE | 2019-11-08 14:23 | NUR ---
Escrow Manager faxed updates and notified Julito val [facility] that updates had been sent.
[2019-11-08 15:58] VITALS: BP 107/60; PULSE 76; TEMP 97.5
--- NOTE | 2019-11-08 18:45 | NUR ---
REPORT RCVD FROM SANTO FARMER. PT IS LYING IN BED EATING DINNER. PT IS VERY PLEASED WITH FINALLY BEING ABLE TO EAT FOOD AND DRINK SOMETHING. PT REMAINS ON TPN. FAMILY AT BEDSIDE. NO FURTHER CONCERNS AT THIS TIME. CALL LIGHT WITHIN REACH.
--- NOTE | 2019-11-08 18:56 | NUR ---
Patient has done well throughout the day. 2x assist back to bed from recliner. Had liquid black BM. Pericare provided, Desenex powder applied to olvin area and inner thighs. Levy catheter discontinued per orders at 1800, tolerated procedure well. Denies pain or further needs at this time. Patient tolerating pureed diet without complications. Needs assistance to eat. Reported off to shift production associate.
[2019-11-08 21:17] VITALS: BP 123/55; PULSE 81; TEMP 98
[2019-11-09] VITALS (7 sets, daily range): BP systolic 134–159; BP diastolic 52–74; PULSE 69–80; TEMP 97.4–98.7
[2019-11-09 07:13] LABS: CALCIUM 8.8 mg/dL (8.4-10.2); CREATININE, serum 0.68 (0.52-1.25); POTASSIUM 4.3 mmol/L (3.4-5.0)
--- NOTE | 2019-11-09 07:30 | NUR ---
Pt had an uneventful night. She had a very difficult time sleeping. Became more alert this shift. Changed pt, and cleaned up perineal area that was very red and excoriated. Barrier cream placed, and powder on top of that. Report given to SANTO Wong. No further concerns at this time.
--- NOTE | 2019-11-09 10:51 | NUR ---
Pt assessment completed and charted. Pt is alert and sitting in bed, at bedside. Pt denies pain or discomfort at this time. pt doesn't appear to be in any distress. Breathing is even and unlabored on room air. Heart RRR, pulses strong bilaterally. No edema noted. Pt has KARINA PICC, TPN running at 76ml/hr to purple port. Red port flushes w/o complications and good blood return. No other concerns expressed at this time. Call light within reach.
--- NOTE | 2019-11-09 12:04 | NUR ---
Spoke with today after he talked with the physician. He feels very good about trying to let Nava eat after MBS yesterday. He states that she has never been a big eater or drinker. He is aware of the pureed food and thickened liquids but is pleased that she can eat, now just wants to know that she is getting enough orally to allow her recovery to continue. Seems very pleased with progress so far.
--- NOTE | 2019-11-09 14:56 | NUR ---
Pt assisted on bedpan, minimal output, then episode of incontinence. Pt changed, repositioned. Pt sleeping, refused lunch at this time.
--- NOTE | 2019-11-09 19:00 | NUR ---
Rcvd bedside report from SANTO Wong. Pt is sitting up in bed eating dinner. Per family report, she has only taken a few bites. Pt's is very upset about pt's depression medications being held still. Per report from SANTO Wong, medications were addressed, however they are still being held. Plan at this point is to talk to family about possible D/C tomorrow to SNF. Assessment completed, pt is laying in bed comfortable and does not voice and wants or needs right now. Call light within reach. No further concerns at this time.
--- NOTE | 2019-11-09 23:40 | NUR ---
Washed pt's hair and combed it out, there was significant matting at the back side of her head. Pt was very happy to have that done. After being cleaned up, pt was repositioned and laid back for sleeping. Call light within reach. No further concerns at this time.
[2019-11-10 04:15] VITALS: BP 141/76; PULSE 74; TEMP 97.4
[2019-11-10 06:12] LABS: MEAN CELL VOLUME 106 fl (80.0-100.0); MEAN CORPUSCULAR HGB CONC 31 g/dl (33.0-37.0); MEAN PLATELET VOLUME 12.7 fl (7.4-10.4); RED BLOOD COUNT 3.01 M/mm3 (4.10-5.30); REDCELL DISTRIBUTION WIDTH-CV 15.9 % (11.5-14.5)
[2019-11-10 06:22] LABS: HEMATOCRIT 31.8 % (37.0-47.0); HEMOGLOBIN 9.9 g/dl (12.5-16.0); MEAN CORPUSCULAR HEMOGLOBIN 33 pg (27.0-31.0); PLATELET COUNT 369 K/mm3 (130-400)
[2019-11-10 06:38] LABS: ALBUMIN 3.2 gm/dL (3.5-5.0); BILIRUBIN,TOTAL 0.7 mg/dL (0.0-1.0); CALCIUM 9.1 mg/dL (8.4-10.2); MAGNESIUM 1.8 mg/dL (1.6-2.3); PHOSPHOROUS 5.1 mg/dL (2.5-4.5); POTASSIUM 4.3 mmol/L (3.4-5.0); TOTAL PROTEIN 6.4 gm/dL (6.4-8.2)
[2019-11-10 06:45] LABS: PRE ALBUMIN 14.6 mg/dL (17.6-36.0)
[2019-11-10 07:15] LABS: BAND 15 % (0-10); EOSINOPHIL 1 % (0-4); LYMPHOCYTE 6 % (20.0-51.0); NEUTROPHILS 74 % (42.0-75.2); OVALOCYTES 2+; PLATELET ESTIMATE NORMAL (NORMAL); SCHISTOCYTES 1+
[2019-11-10 08:06] VITALS: BP 137/77; PULSE 74; TEMP 97.1
--- NOTE | 2019-11-10 09:58 | NUR ---
Met with patient and her Misael this morning after rounds. is very upset with pt's TPN being stopped in light of her intake and that her antidepressant has not been restarted. Pt has been on an antidepressant since before she went to [facility] the first time after a psych evaluation and shock treatments at [facility]. She sees Dr Gardner at [facility] every 6 months and has been doing well until this illness. Her affect today is very flat, much different than the other days I have interacted with her. This has been communicated to treatment team.
--- NOTE | 2019-11-10 10:45 | NUR ---
Pt assessment completed and charted. very frustrated and is concerned about pt not eating, "not acting herself" and not receiving her depression meds. This nurse discussed w/ pharmacy to see if education could be provided and expressed husbands concerns to PA and hospitalist. Team rounded and discussed POC w/ and pt. PO meds to be restarted and crushed. Meds were crushed and given in applesauce, assisted pt for 30 minutes in administering meds. Pt became increasingly difficult to keep awake and needed constant cues to swallow. Alternated applesauce/meds and nectar thickened liquids. pt tolerated ok. Pt is on room air, breathing is even and unlabored. Tele, Heart RRR. KARINA PICC, both ports flush well w/ good blood return. No edema noted. Pulses strong bilaterally. Pt brief checked and changed, pt repositioned. Pt is alert but no conversation. Occasional yes and no, mostly staring off or falling back asleep. No other concerns expressed at this time.
[2019-11-10 11:28] VITALS: BP 137/63; PULSE 78; TEMP 97.6
--- NOTE | 2019-11-10 13:30 | NUR ---
Pt assisted w/ lunch by HIEU Chandra. Pt tolerated ok, needs reminders to swallow, will leave food sitting in mouth. Alternating between sips of liquid and food. Pt did not eat much lunch. pt did receive a little bit of shake earlier with meds.
[2019-11-10 16:26] VITALS: BP 131/61; PULSE 72; TEMP 97.5
--- NOTE | 2019-11-10 16:48 | NUR ---
Fire Support Man attended clinical rounds with the team. Patient's , Misael expressed frustration with plan of care. Patient's is worried about patient not eating and wants TPN to be restarted. Patient's also expressed concern about patient depression. Concerns were discussed with Hospitalist. Psych consult to be ordered. Following rounds, Hospitalist spoke with HALINA about referral to [facility] in [place]. HALINA contacted patient's Misael by phone as he had left hospital. HALINA explained that Hospitalist wanted to discuss referral to [facility] as patient may need extended time to improve. HALINA advised closest LTCH located in [place]. Misael stated he is not interested in this and plans for patient to discharge to [facility]. HALINA provided this update to Hospitalist. HALINA faxed updates to Julito at [facility]. HALINA to continue to follow.
--- NOTE | 2019-11-10 17:30 | NUR ---
Pt checked and changed, episode of incontinence. New brief. repositioned w/ pillow under right side and left arm. Desenex powder applied to olvin area, redness is improving a great deal over the last few days. Bottom still a little red. TPN/Clinimix started at 42ml/hr w/o complications. Pt tolerated PO medication w/ applesauce, alternated w/ nectar thickened juice. Oral care provided. No other concerns noted.
--- NOTE | 2019-11-10 19:24 | NUR ---
Talked w/ , informed him that pt had received her PO medications w/ applesauce and will receive her night meds as well. Psych consult was completed, change to depression meds made. All questions answered.
[2019-11-10 19:29] VITALS: BP 135/55; PULSE 77; TEMP 97.3
--- NOTE | 2019-11-10 20:02 | NUR ---
Resting in bed. Incontinent of urine. Cares provided. Assessment complete. Bases bilaterally crackles otherwise clear. Heart sounds normal. Bowels active x4. Pulses present throughout. Bilateral lower leg edema +1. Periarea erythema present. Desenex powder applied. PICC to right upper-clinimix infusing at 42 ml/hr as ordered. Patient alert unable to answer orientation questions. Denies pain. Call light in reach. Will monitor.
--- NOTE | 2019-11-10 22:16 | NUR ---
Asleep in bed. Call light in reach.
[2019-11-10 23:28] VITALS: BP 130/55; PULSE 75; TEMP 96.7
--- NOTE | 2019-11-11 00:15 | NUR ---
Repositioned. Incontinent care provided. Denies other needs at this time. Call light in reach.
--- NOTE | 2019-11-11 02:03 | NUR ---
Repositioned at this time. Call light in reach
[2019-11-11 04:55] VITALS: BP 127/53; PULSE 75; TEMP 98.3
--- NOTE | 2019-11-11 05:52 | NUR ---
Patient repositioned Q2H throughout night. Incontinent of urine, cares provided each time. Tolerated oral medications in applesauce without difficulty. Denies needs this time. Call light in reach.
[2019-11-11 06:48] LABS: BASO # 0.1 (0.0-0.2); BASO % 1.2 % (0.0-2.0); EOS # 0.3 (0.0-0.7); EOS % 3.3 % (0-4.0); GRAN # 7.1 (1.4-6.5); LYMPH # 0.8 (1.2-3.4); LYMPH % 8.8 % (20.0-51.0); MEAN CELL VOLUME 106 fl (80.0-100.0); MEAN CORPUSCULAR HGB CONC 31 g/dl (33.0-37.0); MEAN PLATELET VOLUME 12.4 fl (7.4-10.4); MONO # 1.1 (0.1-0.6); MONO % 11.1 % (1.7-9.3); PLATELET COUNT 389 K/mm3 (130-400); RED BLOOD COUNT 2.95 M/mm3 (4.10-5.30); REDCELL DISTRIBUTION WIDTH-CV 16.2 % (11.5-14.5)
--- NOTE | 2019-11-11 06:58 | NUR ---
Report given to SANTO Petersen
[2019-11-11 07:06] LABS: CREATININE, serum 1.08 (0.52-1.25); POTASSIUM 4.1 mmol/L (3.4-5.0)
[2019-11-11 07:21] LABS: HEMATOCRIT 31.2 % (37.0-47.0); HEMOGLOBIN 9.7 g/dl (12.5-16.0); MEAN CORPUSCULAR HEMOGLOBIN 33 pg (27.0-31.0)
[2019-11-11 07:42] VITALS: BP 134/62; PULSE 78; TEMP 98.1
--- NOTE | 2019-11-11 10:29 | NUR ---
Pt is A/O. she ate 30% of her meal this morning. Denies any pain at this time. Patient's is at bedside visiting.
--- NOTE | 2019-11-11 11:00 | NUR ---
with sterile technique right upper arm PICC dressing change done with insertion site cleansed with ChloraPrep 1, chlorhexidine impregnated disc applied, skin prep, StatLock, and Tegaderm applied. No signs or symptoms of IV complications noted. No concerns voiced. Arm wrapped with Carlos to protect catheter.
[2019-11-11 11:52] VITALS: BP 115/49; PULSE 78; TEMP 97.1
--- NOTE | 2019-11-11 15:06 | NUR ---
Geosciences Associate Professor attended clinical rounds with the team. Hospitalist discussed [facility] referral again with patient's Misael who declined. Patient's wants patient to stay in the hospital for a couple more days until she can go to [facility]. Hospitalist inquired if [facility] can administer Clinimix. SW contacted Julito who reported they are unable to. MIKE Lance provided this update to CATARINA Yanes. HALINA to continue to follow.
[2019-11-11 16:08] VITALS: BP 125/70; PULSE 74; TEMP 98
--- NOTE | 2019-11-11 19:16 | NUR ---
Patient is A/O. denies any pain. Patient is resting in bed at this time. Patient was informed earlier today of the possible discharge tomorrow 11/12/2019.
[2019-11-11 19:28] VITALS: BP 124/67; PULSE 64; TEMP 98
--- NOTE | 2019-11-11 20:10 | NUR ---
Patient assessed at this time. Alert and oriented x 4. Denies having pain and discomfort. Double lume PICC to right arm flushed. Dressing CDI. Denies SOB and dyspnea. LS CTA in upper lobes, crackles in lower lobes. Respirations even and unlabored. HRR. Capillary refill less than 3 seconds. Non-tenting skin turgor. BSAx4. Abdomen soft and non-tender. No edema. Voices no questions, needs, or concerns at this time. Resting in bed watching TV. Call light within reach.
[2019-11-11 22:54] VITALS: BP 135/77; PULSE 81; TEMP 98.2
[2019-11-12 03:10] VITALS: BP 141/63; PULSE 78; TEMP 97.6
--- NOTE | 2019-11-12 05:53 | NUR ---
Patient denied having pain and discomfort this shift. Staff assisted with repositioning. Continues on TPN via PICC per orders at this time. Voices no questions, needs, or concerns at this time. Resting in bed with call light within reach.
[2019-11-12 06:58] LABS: CALCIUM 9.1 mg/dL (8.4-10.2); CREATININE, serum 0.85 (0.52-1.25)
[2019-11-12 08:47] VITALS: BP 130/57; PULSE 80; TEMP 98.3
--- NOTE | 2019-11-12 09:17 | NUR ---
Spoke with /pt concerning discharge plans. stated he wanted her to contiue TPN, gain her strength, and have psych care. Informed that his 's care was no longer acute in need and we needed to look into long care for his goals. Instructed pt concerning the care given at [facility] vs hospice. agreed that [facility] was more in line with his goals for his . Notified HALINA Quevedo to contact Rodrigo at [facility] to have conversation with /pt about facility and care. agreed with this process.
--- NOTE | 2019-11-12 10:21 | NUR ---
Chrome Tanner and RN-Casi REESE met with patient to revisit discharge plan. Patient's is agreeable to have referral sent to [facility] [place] but would like to speak with clinical liaRodrigo lara. HALINA faxed referral to [facility] and provided patient's with booklet with information about [facility] for him to review. HALINA spoke with Rodrigo, Clinical Amanda and provided him with patient's 's contact information. Rodrigo will call patient's . HALINA provided this update to patient's . SW to continue to follow.
--- NOTE | 2019-11-12 10:57 | NUR ---
approached this nurse about possible transfer to [facility] psych [place]. I called the number he provided and was told that this unit no longer exists. He is very concerned about the psychiatric issues pt is dealing with and at this point I did ask him to talk with Rodrigo about his concerns and available services that [facility] may provide. Case management advises that no other options are available. I am running out of options for this family in their efforts to support Nava to improve.
[2019-11-12 12:15] VITALS: BP 126/58; PULSE 78; TEMP 97.9
--- NOTE | 2019-11-12 16:29 | NUR ---
Nonfarm Animal Caretaker was contacted by Rodrigo who advised he spoke with patient's , Misael and that they would be able to accept referral. HALINA confirmed with Finance that patient has had over three midnights at 200 or above. Rodrigo advised that they have a bed available for patient and requested a brass pickler time of 1230. HALINA contacted Misael who is in agreeance. HALINA contacted [facility] and set up transportation for 1230. SW to follow up with Rodrigo tomorrow to get receiving physician and room number. HALINA met with patient's Misael to present and explain IM form. Misael verbalized understanding and provided signature. HALINA provided copy to Misael and placed form on chart. HALINA also presented EMS transport form and Misael signed consent form. HALINA placed EMS forms on chart to be signed by Hospitalist tomorrow. SW to continue to follow.
[2019-11-12 17:14] VITALS: BP 136/78; PULSE 80; TEMP 97.3
[2019-11-12 20:37] VITALS: BP 128/75; PULSE 83; TEMP 96.9
--- NOTE | 2019-11-12 21:00 | NUR ---
Patient assessed at this time. Alert and oriented. Denies having pain and discomfort. Double lumen PICC to RUE. TPN running per orders. Dressing to area CDI. Continues to only take small sips/bites of food. Denies pain and discomfort with swallowing. Difficulty swallowing continues. LS CTA. Respirations even and unlabored. Denies SOB and dyspnea. HRR. Capillary refill less than 3 seconds. Non-tenting skin turgor. BSAx4. Abdomen soft and non-tender. 1+ edema BLE. Voices no questions, needs, or concerns at this time. Resting in bed with call light within reach.
[2019-11-13 00:02] VITALS: BP 126/98; PULSE 77; TEMP 96.6
--- NOTE | 2019-11-13 00:48 | NUR ---
Staff assisting with repositioning every two hours. Denies having pain and discomfort. Resting in bed with call light within reach. Call light within reach.
[2019-11-13 05:23] VITALS: BP 138/70; PULSE 77; TEMP 96.7
--- NOTE | 2019-11-13 05:55 | NUR ---
Continues on TPN per orders. Taking medications crushed in applesauce. Voices no questions, needs, or concerns at this time. Resting in bed with call light within reach.
[2019-11-13 07:39] VITALS: BP 145/62; PULSE 81; TEMP 97.2
--- NOTE | 2019-11-13 09:31 | NUR ---
PT APPEARS TO HAVE ISSUES ON SWALLOWING DOWN CRUSHED MEDICATIONS. I CLEANED HER UP AND HAD HER DRINK BUT SHE STILL APPEARS TO HAVE A HARD TIME SWALLOWING CONTENT. PT UP IN CHAIR. CALL LIGHT BESIDE HER, TABLE AND WATER BESIDE HER. PT DENIED OTHER NEEDS AT THIS TIME.
[2019-11-13 11:10] VITALS: BP 131/63; PULSE 86; TEMP 97.5
--- NOTE | 2019-11-13 12:45 | NUR ---
PT TRANSFERRED INTO HER CLOTHES AND HER BRIEF WAS CHANGED. MEDICATED POWDER APPLIED TO JONES AREA. TRANSFERRED TO EMS ALONG WITH TPN. WILL CALL REPORT TO [facility]. PRESENT AT TRANSFER.
--- NOTE | 2019-11-13 13:11 | NUR ---
report has been given
--- NOTE | 2019-11-13 13:57 | NUR ---
HALINA received a call from Rodrigo in regards to patient. HALINA confirmed time of orange picker and asked for receiving physicians name and the room number as indicated in notes. Rodrigo noted that he would call HALINA back with information. Receiving physician was Dr. Muñiz. Forms completed with the assistance of the charge nurse. Copies of transfer forms put into patients records.
== END 2019-11-13 13:12 | DRG 853 ==
LOC: COL.ER 15:40 → ICU 20:49 → SDCO 20:49 → MEDICAL 10-27 00:01 → ICU 10-27 00:01 → MEDICAL 10-31 13:27
PROVIDERS: Emergency Medicine; Internal Medicine; Internal Medicine Pulmonary Disease; Nurse Practitioner Family; Physician Assistant; Student in an Organized Health Care Education/Training Program; ADMIT Hospitalist
PROC: 0T778DZ Dilation of Left Ureter with Intraluminal Device, Via Natural or Artificial Opening Endoscopic (ICD-10-PCS; principal; 2019-10-27)
PROC: BT1F1ZZ Fluoroscopy of Left Kidney, Ureter and Bladder using Low Osmolar Contrast (ICD-10-PCS; 2019-10-27)
PROC: 0DH67UZ Insertion of Feeding Device into Stomach, Via Natural or Artificial Opening (ICD-10-PCS; 2019-10-27)
PROC: 0BH17EZ Insertion of Endotracheal Airway into Trachea, Via Natural or Artificial Opening (ICD-10-PCS; 2019-10-27)
PROC: 5A1945Z Respiratory Ventilation, 24-96 Consecutive Hours (ICD-10-PCS; 2019-10-27)
PROC: 0DJ08ZZ Inspection of Upper Intestinal Tract, Via Natural or Artificial Opening Endoscopic (ICD-10-PCS; 2019-11-05)
PROC: 3E0436Z Introduction of Nutritional Substance into Central Vein, Percutaneous Approach (ICD-10-PCS; 2019-11-05)
PROC: 02HV33Z Insertion of Infusion Device into Superior Vena Cava, Percutaneous Approach (ICD-10-PCS; 2019-11-05)
DX: A41.51 Sepsis due to Escherichia coli [E. coli] (principal); R65.21 Severe sepsis with septic shock; I21.A1 Myocardial infarction type 2; K72.00 Acute and subacute hepatic failure without coma; J96.01 Acute respiratory failure with hypoxia; N13.6 Pyonephrosis; E87.2 Acidosis; N17.9 Acute kidney failure, unspecified; E46 Unspecified protein-calorie malnutrition; F33.2 Major depressive disorder, recurrent severe without psychotic features; I95.81 Postprocedural hypotension; Z66 Do not resuscitate; E78.5 Hyperlipidemia, unspecified; F41.9 Anxiety disorder, unspecified; K21.9 Gastro-esophageal reflux disease without esophagitis; E03.9 Hypothyroidism, unspecified; M81.0 Age-related osteoporosis without current pathological fracture; E87.6 Hypokalemia; E83.42 Hypomagnesemia; M19.90 Unspecified osteoarthritis, unspecified site; E83.39 Other disorders of phosphorus metabolism; I48.0 Paroxysmal atrial fibrillation; K22.2 Esophageal obstruction; D69.6 Thrombocytopenia, unspecified; D53.9 Nutritional anemia, unspecified; R13.10 Dysphagia, unspecified; G72.9 Myopathy, unspecified; I27.20 Pulmonary hypertension, unspecified; Z68.22 Body mass index [BMI] 22.0-22.9, adult; Z90.710 Acquired absence of both cervix and uterus
CPT/HCPCS: OP; 99223-AI; 99231-AI; 99232-AI; 99233-AI; 99239; A4216; A4217; A9585; C1751; C1769; C2617; J0282; J0610; J0696; J1644; J1720; J1815; J1940; J2250; J2270; J2370; J2405; J2543; J2704; J3010; J3370; J3411; J3475; J3480; J7030; J7050; J7060; J7120; J7131; Q9967

== ENCOUNTER → 2020-02-02 | Outpatient (CLI) | payer MEDICARE, OTHER ==
[~2020-02-02] MED LIST changes: +ALEVE 220MG220 MG PO; +ASPIRIN 81M81 MG/TA2 PO; +CARDIZEM 30MG T30 MG PO; +ELIQUIS 2.5 PO; +IPRATROPIUM BROM3 M1 IH; +LASIX 40MG TABL40 MG PO; +LEVAQUIN 5500 MG/TA1 PO; +MACRODANTIN100 PO; +MIRTAZAPINE7.5 MG PO; +MUCOMYST 20200 MG/M1 IH; +MULTIPLE VITAMI1 CAP PO; +NYSTATIN POWDER15 GM TOP; +PACERONE200 MG PO; +PRILOSEC 20MG20 MG PO; +PROTONIX 40MG T40 MG PO; +SYNTHROID0.05 MG/TA PO; +VITAMIN C500 MG PO; +ZINC SO4 PO; +ZYPREXA2.5 MG PO
[2020-02-02 19:57] LABS: CALCIUM 10.5 mg/dL (8.4-10.2); CREATININE, serum 2.86 (0.52-1.25); POTASSIUM 4.2 mmol/L (3.4-5.0)
== END ==
LOC: ZCOL.LAB 19:44
PROVIDERS: Emergency Medicine
DX: I10 Essential (primary) hypertension (principal)